=== PATIENT | female | born 1995 | race Caucasian/White ===

== ENCOUNTER 2016-10-30 21:00 | Emergency (ER) | payer OTHER ==
[2016-10-30 21:20] VITALS: BP 135/81; PULSE 87; RESP 16; TEMP 99; O2SAT 98
--- NOTE | 2016-10-30 22:30 | UCPHY ---
H & P Time Seen by Provider: 10/30/16 22:22 Patient Type: Established HPI/ROS: This patient presents with a request for a prescription refill for Remeron and trazodone. These were prescribed to her after an inpatient admission for psychiatric illness and her next appointment is in 2 weeks. She has no physical complaints except that she feels anxious. Smoking Status: Current every day smoker Physical Exam: This patient is alert, oriented, lucid and is in no distress. She does appear to be quite anxious however. Constitutional: Initial Vital Signs Temperature (C) 37.2 C 10/30/16 21:16 Heart Rate 87 10/30/16 21:16 Respiratory Rate 16 10/30/16 21:16 Blood Pressure 135/81 H 10/30/16 21:16 O2 Sat (%) 98 10/30/16 21:16 O2 Delivery Mode Room Air Allergies/Adverse Reactions: Cephalosporins Allergy (Verified 10/30/16 21:14) Home Medications: Medication Instructions Recorded Albuterol [Proventil Inhaler HFA 1 - 2 puffs IH Q4HRS PRN #1 mdi 08/03/16 (*)] hydrOXYzine HCL [hydrOXYzine HCL 25 mg PO Q4 PRN #60 tab 08/03/16 (RX)] Lorazepam [Ativan] 10/30/16 Mirtazapine [Remeron Soltab 30 mg 30 mg PO HS #14 tabef 10/30/16 (*)] Mirtazapine [Remeron] 10/30/16 Pantoprazole Sodium [Protonix] 10/30/16 Propranolol HCl 10/30/16 traZODone [traZODONE 50MG (*)] 10/30/16 traZODone [traZODONE 50MG (*)] 50 mg PO HS #14 tab 10/30/16 Departure - Departure Disposition: Home, Routine, Self-Care Clinical Impression: Prescription refill Condition: Good Additional Instructions: Follow-up as previously scheduled. Referrals: NONE *PRIMARY CARE P,. [Primary Care Provider] - As per Instructions Prescriptions: Mirtazapine [Remeron Soltab 30 mg (*)] 30 mg PO HS #14 tabef traZODone [traZODONE 50MG (*)] 50 mg PO HS #14 tab - PQRS PQRS Measurement: Not applicable
== END 2016-10-30 22:35 | disposition home or self-care (01) ==
LOC: CED 21:00
DX: Z76.0 Encounter for issue of repeat prescription (principal); F41.1 Generalized anxiety disorder; Z72.0 Tobacco use
CPT/HCPCS: 99213-PO; G0463-PO

== ENCOUNTER 2016-11-08 16:45 | Emergency (ER) | payer OTHER ==
[2016-11-08 17:16] VITALS: TEMP 98.4; O2SAT 94
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
[2016-11-08] MEDS ORDERED: ONDANSETRON DISINTEGRATING 4 MG TAB PO ONE (18:46)
[2016-11-08 20:29] VITALS: BP 109/52; PULSE 83; RESP 16
== END 2016-11-08 20:54 | disposition home or self-care (01) ==
LOC: EEVIPCON 16:45
DX: S00.93XA Contusion of unspecified part of head, initial encounter (principal); F17.200 Nicotine dependence, unspecified, uncomplicated; Y04.0XXA Assault by unarmed brawl or fight, initial encounter; Y92.149 Unspecified place in prison as the place of occurrence of the external cause